=== PATIENT | male | born 1960 | race Caucasian/White ===

== ENCOUNTER → 2017-03-23 | Outpatient (CLI) | payer BC ==
[2017-03-23 12:43] LABS: ALBUMIN 3.8 GM/DL (3.2-5.2); ALBUMIN/GLOBULIN RATIO 1.31 (1.00-1.93); ALKALINE PHOSPHATASE 46 U/L (45-117); ALT/SGPT 53 U/L (12-78); ANION GAP 6 MEQ/L (8-16); AST/SGOT 25 U/L (7-37); BILIRUBIN,DIRECT < 0.1 MG/DL (0.0-0.2); BILIRUBIN,TOTAL 0.3 MG/DL (0.2-1.0); BLOOD UREA NITROGEN 16 MG/DL (7-18); CALCIUM LEVEL 9.5 MG/DL (8.5-10.1); CARBON DIOXIDE LEVEL 27 MEQ/L (21-32); CHLORIDE LEVEL 105 MEQ/L (98-107); CREATININE FOR GFR 0.93 MG/DL (0.70-1.30); GLOMERULAR FILTRATION RATE > 60.0 (>56); GLUCOSE, FASTING 129 MG/DL (70-105); PHOSPHORUS LEVEL 3.9 MG/DL (2.5-4.9); POTASSIUM SERUM 4.8 MEQ/L (3.5-5.1); SODIUM LEVEL 138 MEQ/L (136-145); TOTAL PROTEIN 6.7 GM/DL (6.4-8.2)
== END ==
LOC: M LABDRAW1 09:39
PROVIDERS: ATTEND Physician Assistant
DX: M47.896 Other spondylosis, lumbar region (principal)

== ENCOUNTER 2017-04-07 07:52 | Outpatient (RCR) | payer BC | END 2017-05-03 | LOC: M PT 07:52 | DX: Z51.89 Encounter for other specified aftercare (principal); M47.896 Other spondylosis, lumbar region; M51.36 Other intervertebral disc degeneration, lumbar region | CPT/HCPCS: 97010 ==

== ENCOUNTER → 2017-04-16 | Outpatient (REF) | payer BC | LOC: M SFHCLERA 15:20 | PROVIDERS: ATTEND Family Medicine | DX: E66.9 Obesity, unspecified (principal); Z53.9 Procedure and treatment not carried out, unspecified reason ==

== ENCOUNTER → 2017-05-18 | Outpatient (REF) | payer BC ==
[2017-05-18 21:34] LABS: HEMATOCRIT 51.1 % (42.0-52.0); HEMOGLOBIN 17.1 g/dl (14.0-18.0); MEAN CORPUSCULAR HGB CONC 33.5 g/dl (32.0-36.5); MEAN CORPUSCULAR VOLUME 86.8 fl (80.0-96.0); PLATELET COUNT, AUTOMATED 273 10^3/uL (150-450); RED BLOOD COUNT 5.89 10^6/uL (4.30-6.10); WHITE BLOOD COUNT 7.6 10^3/uL (4.0-10.0)
[2017-05-18 22:06] LABS: ESTIMATED AVERAGE GLUCOSE 140 MG/DL (60-110); HEMOGLOBIN A1c 6.5 %
[2017-05-18 22:18] LABS: ALBUMIN 4.3 GM/DL (3.2-5.2); ALBUMIN/GLOBULIN RATIO 1.43 (1.00-1.93); ALKALINE PHOSPHATASE 64 U/L (45-117); ALT/SGPT 63 U/L (12-78); ANION GAP 7 MEQ/L (8-16); AST/SGOT 38 U/L (7-37); BILIRUBIN,TOTAL 0.3 MG/DL (0.2-1.0); BLOOD UREA NITROGEN 17 MG/DL (7-18); CALCIUM LEVEL 9.2 MG/DL (8.5-10.1); CARBON DIOXIDE LEVEL 27 MEQ/L (21-32); CHLORIDE LEVEL 106 MEQ/L (98-107); CHOLESTEROL LEVEL 263 MG/DL (<200); CHOLESTEROL RISK RATIO 7.735 (<5); CREATININE FOR GFR 0.81 MG/DL (0.70-1.30); GLOMERULAR FILTRATION RATE > 60.0 (>56); GLUCOSE, FASTING 110 MG/DL (70-105); HDL CHOLESTEROL 34 MG/DL (>40); NON-HDL-C 229 MG/DL; POTASSIUM SERUM 4.6 MEQ/L (3.5-5.1); SODIUM LEVEL 140 MEQ/L (136-145); TOTAL PROTEIN 7.3 GM/DL (6.4-8.2); TRIGLYCERIDES LEVEL 476 MG/DL (<150)
== END ==
LOC: M SFHCLERA 16:51
DX: E66.9 Obesity, unspecified (principal)
CPT/HCPCS: 84443

== ENCOUNTER → 2017-09-01 | Outpatient (CLI) | payer BC ==
[2017-09-01 13:46] LABS: APPEARANCE, URINE CLEAR (CLEAR); BACTERIA, URINE AUTO NEGATIVE (NEGATIVE); BILIRUBIN, URINE AUTO NEGATIVE (NEGATIVE); BLOOD, URINE BLOOD NEGATIVE (NEGATIVE); COLOR, URINE YELLOW (YELLOW); GLUCOSE, URINE (UA) AUTO NEGATIVE (NEGATIVE); KETONE, URINE AUTO NEGATIVE (NEGATIVE); LEUKOCYTE ESTERASE, URINE AUTO NEGATIVE (NEGATIVE); MUCUS, URINE SMALL (NEGATIVE); NITRITE, URINE AUTO NEGATIVE (NEGATIVE); PROTEIN, URINE AUTO NEGATIVE (NEGATIVE); RBC, URINE AUTO 0 /HPF (0-3); SPECIFIC GRAVITY URINE AUTO 1.021 (1.002-1.035); SQUAMOUS EPITHELIAL CELL UR AU 0 /HPF (0-6); UROBILINOGEN, URINE AUTO 0.2 mg/dL (0.0-2.0); WBC, URINE AUTO 1 /HPF (0-3)
== END ==
LOC: M SMT 10:00
DX: Z12.5 Encounter for screening for malignant neoplasm of prostate (principal)
CPT/HCPCS: G0103

== ENCOUNTER 2017-09-10 12:47 | Emergency (ER) | payer BC ==
[2017-09-10] MEDS: NS 1,000 ML IV (13:32)
[2017-09-10] MEDS: MORPHINE 4 MG/ML 1ML VIAL/SYRINGE (J2270) IV ×2 (13:35→14:20)
[2017-09-10 13:46] LABS: BASO # 0.1 10^3/uL (0.0-0.2); BASO % 0.9 % (0.0-1.0); EOS # 0.1 10^3/uL (0.0-0.50); EOS % 1.9 % (0.0-3.0); HEMATOCRIT 49.1 % (42.0-52.0); HEMOGLOBIN 16.6 g/dl (13.5-17.5); IMMATURE GRANULOCYTE % 0.1 % (0-3.0); LYMPH # 1.8 10^3/uL (1.5-4.5); LYMPH % 25.7 % (24.0-44.0); MEAN CORPUSCULAR HEMOGLOBIN 28.9 pg (27.0-33.0); MEAN CORPUSCULAR HGB CONC 33.8 g/dl (32.0-36.5); MEAN CORPUSCULAR VOLUME 85.4 fl (80.0-96.0); MONO # 0.6 10^3/uL (0.0-0.8); MONO % 7.9 % (0.0-5.0); NEUTROPHILS # 4.4 10^3/uL (1.8-7.7); NEUTROPHILS % 63.5 % (36.0-66.0); PLATELET COUNT, AUTOMATED 277 10^3/uL (150-450); RED BLOOD COUNT 5.75 10^6/uL (4.30-6.10); RED CELL DISTRIBUTION WIDTH 13.2 % (11.5-14.5); WHITE BLOOD COUNT 6.9 10^3/uL (4.0-10.0)
[2017-09-10 13:50] LABS: AMORPHOUS SEDIMENT RFX SMALL (NEGATIVE); KETONE, URINE AUTO RFX NEGATIVE (NEGATIVE); LEUKOCYTE ESTERASE UR AUTO RFX NEGATIVE (NEGATIVE); MUCUS, URINE RFX SMALL (NEGATIVE); NITRITE, URINE AUTO RFX NEGATIVE (NEGATIVE); RBC, URINE AUTO RFX 1 /HPF (0-3); SPECIFIC GRAVITY UR AUTO RFX 1.024 (1.002-1.035); SQUAM EPITHELIAL CELL UR AURFX 0 /HPF (0-6); WBC, URINE AUTO RFX 1 /HPF (0-3)
[2017-09-10 14:12] LABS: ALBUMIN 3.8 GM/DL (3.2-5.2); ALBUMIN/GLOBULIN RATIO 1.06 (1.00-1.93); ALKALINE PHOSPHATASE 58 U/L (45-117); ALT/SGPT 55 U/L (12-78); ANION GAP 5 MEQ/L (8-16); AST/SGOT 36 U/L (7-37); BILIRUBIN,DIRECT < 0.1 MG/DL (0.0-0.2); BILIRUBIN,TOTAL 0.3 MG/DL (0.2-1.0); BLOOD UREA NITROGEN 14 MG/DL (7-18); CALCIUM LEVEL 8.7 MG/DL (8.5-10.1); CARBON DIOXIDE LEVEL 27 MEQ/L (21-32); CHLORIDE LEVEL 106 MEQ/L (98-107); CREATININE FOR GFR 0.94 MG/DL (0.70-1.30); GLOMERULAR FILTRATION RATE > 60.0 (>56); GLUCOSE, FASTING 124 MG/DL (70-100); LIPASE 127 U/L (73-393); POTASSIUM SERUM 4.7 MEQ/L (3.5-5.1); SODIUM LEVEL 138 MEQ/L (136-145); TOTAL PROTEIN 7.4 GM/DL (6.4-8.2)
[2017-09-10] MEDS: PERCOCET 5MG/325MG TAB PO (16:13)
== END 2017-09-10 16:29 | disposition home or self-care (01) ==
LOC: M ED 12:47
DX: M51.36 Other intervertebral disc degeneration, lumbar region (principal); R33.9 Retention of urine, unspecified; F17.200 Nicotine dependence, unspecified, uncomplicated; F12.10 Cannabis abuse, uncomplicated; K57.30 Diverticulosis of large intestine without perforation or abscess without bleeding; Z79.899 Other long term (current) drug therapy
CPT/HCPCS: J2270

== ENCOUNTER → 2017-09-29 | Outpatient (CLI) | payer BC | LOC: M SMT PRO 08:21 | DX: N40.1 Benign prostatic hyperplasia with lower urinary tract symptoms (principal); R97.20 Elevated prostate specific antigen [PSA] | CPT/HCPCS: G0416 ==

== ENCOUNTER 2017-11-02 12:50 | Emergency (ER) | payer BC ==
[2017-11-04 00:09] LABS: Lyme Disease IgG/IgM Antibodie <0.91 ISR (0.00-0.90); Lyme Disease IgM Ab Quantitati <0.80 index (0.00-0.79)
== END 2017-11-02 13:43 | disposition home or self-care (01) ==
LOC: M ED 12:50
DX: S81.851A Open bite, right lower leg, initial encounter (principal); W57.XXXA Bitten or stung by nonvenomous insect and other nonvenomous arthropods, initial encounter; Y92.89 Other specified places as the place of occurrence of the external cause; F17.200 Nicotine dependence, unspecified, uncomplicated; Z79.899 Other long term (current) drug therapy
CPT/HCPCS: 36415

== ENCOUNTER → 2019-02-01 | Outpatient (CLI) | payer OTHER ==
[~2019-02-01] MED LIST: AMOX500C PO; CYCL10TA PO; FINA5TAB2 PO; OXYB10TA2 PO; PERC5TAB12 PO; PROAAER10 INH
[2019-02-01 19:18] LABS: APPEARANCE, URINE CLEAR (CLEAR); BACTERIA, URINE AUTO NEGATIVE (NEGATIVE); BILIRUBIN, URINE AUTO NEGATIVE (NEGATIVE); BLOOD, URINE BLOOD NEGATIVE (NEGATIVE); CALCIUM OXALATE CRYSTALS SMALL; COLOR, URINE YELLOW (YELLOW); GLUCOSE, URINE (UA) AUTO NEGATIVE (NEGATIVE); KETONE, URINE AUTO NEGATIVE (NEGATIVE); LEUKOCYTE ESTERASE, URINE AUTO 1+ (NEGATIVE); MUCUS, URINE SMALL (NEGATIVE); NITRITE, URINE AUTO NEGATIVE (NEGATIVE); PROTEIN, URINE AUTO NEGATIVE (NEGATIVE); RBC, URINE AUTO 0 /HPF (0-3); SPECIFIC GRAVITY URINE AUTO 1.024 (1.002-1.035); SQUAMOUS EPITHELIAL CELL UR AU 0 /HPF (0-6); UROBILINOGEN, URINE AUTO 0.2 mg/dL (0.0-2.0); WBC, URINE AUTO 4 /HPF (0-3)
== END ==
LOC: M RAD 13:57
PROVIDERS: ATTEND Nurse Practitioner Women's Health
DX: R97.20 Elevated prostate specific antigen [PSA] (principal)

== ENCOUNTER → 2019-02-03 | Outpatient (CLI) | payer OTHER ==
--- NOTE | 2019-02-03 09:58 | REP ---
SCROTAL ULTRASOUND: Real-time sonographic evaluation of the scrotum and contents was performed. Testicles are normal in size and echotexture. Right testicle measuring 4.9 x 2.4 x 2.9 cm and left testicle 4.7 x 2.6 x 3.4 cm. Cyst in the head of the right epididymis measures 6 mm and a cyst in the head of the left epididymis measures 3 mm. No testicular mass or torsion, blood flow is seen in each testicle with duplex Doppler evaluation. RI right testicle 0.53 and left testicle 0.60. No other abnormalities are seen. IMPRESSION: Subcentimeter cyst in each epididymis. Normal testicles. Electronically Signed by Ricky Salgado MD 02/03/2019 05:52 P
== END ==
LOC: M RAD 08:00
PROVIDERS: ATTEND Nurse Practitioner Women's Health
DX: N50.3 Cyst of epididymis (principal)

== ENCOUNTER → 2019-03-07 | Outpatient (REF) | payer BC ==
[2019-03-07 13:13] LABS: BASO # 0.1 10^3/uL (0.0-0.2); EOS # 0.1 10^3/uL (0.0-0.5); EOS % 2.3 % (0.0-3.0); HEMATOCRIT 49.5 % (42.0-52.0); HEMOGLOBIN 15.9 g/dl (13.5-17.5); LYMPH # 1.5 10^3/uL (1.5-5.0); LYMPH % 24.9 % (24.0-44.0); MEAN CORPUSCULAR HEMOGLOBIN 29.1 pg (27.0-33.0); MEAN CORPUSCULAR HGB CONC 32.1 g/dl (32.0-36.5); MEAN CORPUSCULAR VOLUME 90.7 fl (80.0-96.0); MONO # 0.5 10^3/uL (0.0-0.8); MONO % 7.4 % (0.0-5.0); NEUTROPHILS # 3.9 10^3/uL (1.5-8.5); NEUTROPHILS % 64.2 % (36.0-66.0); PLATELET COUNT, AUTOMATED 217 10^3/uL (150-450); RED BLOOD COUNT 5.46 10^6/uL (4.30-6.10); WHITE BLOOD COUNT 6.1 10^3/uL (4.0-10.0)
[2019-03-07 13:48] LABS: ALBUMIN 3.5 GM/DL (3.2-5.2); ALT/SGPT 40 U/L (12-78); BILIRUBIN,TOTAL 0.5 MG/DL (0.2-1.0); BLOOD UREA NITROGEN 13 MG/DL (7-18); CARBON DIOXIDE LEVEL 28 MEQ/L (21-32); CHLORIDE LEVEL 104 MEQ/L (98-107); CHOLESTEROL LEVEL 216 MG/DL (<200); CHOLESTEROL RISK RATIO 5.837 (<5); CREATININE FOR GFR 0.78 MG/DL (0.70-1.30); GLOMERULAR FILTRATION RATE > 60.0 (>49); GLUCOSE, FASTING 137 MG/DL (70-100); HDL CHOLESTEROL 37 MG/DL (>40); LDL CHOLESTEROL 126 MG/DL (<100); NON-HDL-C 179 MG/DL; POTASSIUM SERUM 4.5 MEQ/L (3.5-5.1); SODIUM LEVEL 139 MEQ/L (136-145); TOTAL PROTEIN 6.4 GM/DL (6.4-8.2); TRIGLYCERIDES LEVEL 266 MG/DL (<150)
[2019-03-07 14:25] LABS: HEMOGLOBIN A1c 7.4 %
[2019-03-08 08:06] LABS: LDL DIRECT 148 mg/dL (0-99)
== END ==
LOC: M SFHCLERA 08:35
PROVIDERS: ATTEND Family Medicine
DX: R73.09 Other abnormal glucose (principal); E78.5 Hyperlipidemia, unspecified; Z11.59 Encounter for screening for other viral diseases

== ENCOUNTER 2019-03-25 06:02 | Emergency (ER) | payer BC ==
[~2019-03-25] VITALS: Ht 175.3 cm; Wt 118.2 kg
[2019-03-25] MEDS ORDERED: METF500T13 PO (06:09)
[2019-03-25] MEDS ORDERED: CYCL5TAB PO (06:09)
[2019-03-25] MEDS ORDERED: ATOR1TAB19 PO (06:09)
[2019-03-25] MEDS ORDERED: IBUPROFEN 600 MG TAB PO ONE (07:45)
[2019-03-25 08:16] LABS: BASO # 0.1 10^3/uL (0.0-0.2); BASO % 0.7 % (0.0-1.0); EOS # 0.2 10^3/uL (0.0-0.5); EOS % 2.4 % (0.0-3.0); HEMATOCRIT 51.9 % (42.0-52.0); HEMOGLOBIN 16.8 g/dl (13.5-17.5); LYMPH # 1.6 10^3/uL (1.5-5.0); LYMPH % 22.1 % (24.0-44.0); MEAN CORPUSCULAR HEMOGLOBIN 28.9 pg (27.0-33.0); MEAN CORPUSCULAR HGB CONC 32.4 g/dl (32.0-36.5); MEAN CORPUSCULAR VOLUME 89.3 fl (80.0-96.0); MONO # 0.5 10^3/uL (0.0-0.8); MONO % 7.5 % (0.0-5.0); NEUTROPHILS # 4.7 10^3/uL (1.5-8.5); PLATELET COUNT, AUTOMATED 241 10^3/uL (150-450); RED BLOOD COUNT 5.81 10^6/uL (4.30-6.10)
[2019-03-25 08:38] LABS: BLOOD UREA NITROGEN 18 MG/DL (7-18); C REACTIVE PROTEIN QUANTITATIV < 0.30 MG/DL (0.00-0.30); CALCIUM LEVEL 8.9 MG/DL (8.8-10.2); CARBON DIOXIDE LEVEL 28 MEQ/L (21-32); CHLORIDE LEVEL 108 MEQ/L (98-107); CREATININE FOR GFR 0.83 MG/DL (0.70-1.30); GLOMERULAR FILTRATION RATE > 60.0 (>49); GLUCOSE, FASTING 126 MG/DL (70-100); POTASSIUM SERUM 4.5 MEQ/L (3.5-5.1); SODIUM LEVEL 139 MEQ/L (136-145)
[2019-03-25 08:40] LABS: ERYTHROCYTE SEDIMENTATION RATE 2 mm/hr (0-20)
--- NOTE | 2019-03-25 08:49 | REP ---
CT lumbar spine: 03/25/2019. Indication: Low back pain. Comparison: 09/10/2017. Technique: Unenhanced axial CT images of the lumbar spine were obtained with coronal and sagittal reconstructions provided. Findings: Vertebral body alignment is within anatomical limits. There is no acute fracture, subluxation or dislocation. No lytic or blastic lesions of the visualized bones are present. There is calcification of the posterior longitudinal ligament at to T12/L1. There is significant narrowing of the spinal canal, particularly on the right at the T12/L1 level. There is significant narrowing of the left recess at L1/L2. Severe spinal canal narrowing is present at L2/L3 with calcification of the ligament of five also noted. Iliac artery atherosclerotic disease is present. Impression: No acute fracture. Severe narrowing of the spinal canal at L2/L3 and additional degenerative sequelae as described. Electronically Signed by Bony Fuentes DO 03/25/2019 08:40 A
[2019-03-25 09:35] VITALS: BP 139/83
--- NOTE | 2019-03-25 10:45 | ED PDOC ---
Post-Departure Follow-Up johanna bradford and klever faxed formal report of ct ls spine for fu Harleen Mendez MD Mar 25, 2019 10:45
== END 2019-03-25 09:35 | disposition home or self-care (01) ==
LOC: M ED 06:02
DX: M51.37 Other intervertebral disc degeneration, lumbosacral region (principal); M48.061 Spinal stenosis, lumbar region without neurogenic claudication; E11.9 Type 2 diabetes mellitus without complications; E78.5 Hyperlipidemia, unspecified; M19.90 Unspecified osteoarthritis, unspecified site; Z79.899 Other long term (current) drug therapy; Z79.84 Long term (current) use of oral hypoglycemic drugs; F17.210 Nicotine dependence, cigarettes, uncomplicated

== ENCOUNTER → 2019-03-26 | Outpatient (CLI) | payer BC ==
[~2019-03-26] MED LIST changes: +ATOR1TAB19 PO; +CYCL5TAB PO; +METF500T13 PO
--- NOTE | 2019-03-28 09:51 | REP ---
MRI LUMBAR SPINE WITHOUT CONTRAST: HISTORY: Spinal stenosis. Comparison CT study of the lumbar spine from the previous day, March 25, 2019, showed severe narrowing of the spinal canal at L2-3. TECHNIQUE: Sagittal and axial T1- and T2-weighted scans are acquired in the usual fashion with and without fat saturation. Sequences include spin echo, turbo spin-echo, and STIR imaging sequences. MRI FINDINGS: Lumbar vertebral body heights are preserved. Alignment is normal. There is no evidence of spondylolysis or spondylolisthesis. There is diffuse degenerative disc disease throughout the lumbar spine. Normal caliber aorta. No extra vertebral abnormality is observed. Images taken at T12-L1 demonstrate a calcified, broad-based right posterior disc protrusion which, combined with thickening and calcification of the posterior longitudinal ligament extending over the posterior margin of L1 all the way to the L1-2 disc, produces some thecal sac compression from T12-L1 through L1-2. At the level of the T12-L1 disc, the distal cord is indented. The tip of the conus is just below this at L1. At the L1-L2 disc, axial and sagittal images demonstrate diffuse disc bulging. There is a borderline canal size. A small central focal disc protrusion is seen at the L1-2 level extending inferiorly. Midline AP dimension of the thecal sac at L1-2 is 9 mm. There is left foraminal narrowing at L1-2. This is due to discogenic spurring and disc bulging. At L2-L3, there is severe central canal stenosis due to diffuse disc bulging, developmentally short pedicles, facet and ligamentum flavum hypertrophy, and dorsally placed epidural fat. Midline AP dimension of the thecal sac at L2-3 is 5.7 mm. The cauda equine elements are buckled and redundant above this level in the thecal sac. There is mild left-sided foraminal stenosis due to facet hypertrophy and disc bulging. At L3-L4, there is moderate central canal stenosis due to diffuse disc bulging, developmentally short pedicles, dorsally positioned epidural fat, and moderate ligamentum flavum and facet hypertrophy present bilaterally. The midline AP dimension of the thecal sac is 7 mm at this level. There is mild bilateral foraminal stenosis due to facet hypertrophy and disc bulging, left more prominent than right. At L4-5, there is moderate central canal stenosis due to diffuse disc bulging, ligamentum flavum and facet hypertrophy, dorsally placed epidural fat, and developmentally fairly short pedicles. Midline AP dimension of the thecal sac is 8 mm at L4-5. There is minimal bilateral foraminal stenosis due to facet hypertrophy and disc bulging. At L5-S1, there is bilateral facet hypertrophy. No central canal stenosis is seen. There is minimal bilateral foraminal narrowing. IMPRESSION: Multilevel central canal stenosis most pronounced at L2-3 but also significant at L3-4 and L4-5. This is due to degenerative disc disease, diffuse disc bulging, ligamentum flavum and facet hypertrophy, developmentally short pedicles, and dorsally positioned epidural fat. There is a calcified disc protrusion at T12-L1 with thickening and calcification of the posterior longitudinal ligament extending from T12-L1 to the L1-2 disc. Electronically Signed by Leonard Tomas MD 03/28/2019 09:55 A
== END ==
LOC: M RAD 13:40
PROVIDERS: ATTEND Physician Assistant Medical
DX: M48.061 Spinal stenosis, lumbar region without neurogenic claudication (principal); M51.36 Other intervertebral disc degeneration, lumbar region; M51.25 Other intervertebral disc displacement, thoracolumbar region; M51.26 Other intervertebral disc displacement, lumbar region; M24.28 Disorder of ligament, vertebrae; M46.96 Unspecified inflammatory spondylopathy, lumbar region

== ENCOUNTER → 2019-04-07 | Outpatient (REF) | payer BC ==
[2019-04-07 12:23] LABS: MALB URINE SIEMENS 15.4 MG/L; MAU/CREAT RATIO 8.2 MCG/MG (0.0-30.0)
[2019-04-07 12:35] LABS: CHOLESTEROL RISK RATIO 5.333 (<5)
== END ==
LOC: M SFHCLERA 09:18
PROVIDERS: ATTEND Family Medicine
DX: E11.9 Type 2 diabetes mellitus without complications (principal); E78.5 Hyperlipidemia, unspecified

== ENCOUNTER → 2019-10-21 | Outpatient (REF) | payer BC ==
[~2019-10-21] MED LIST changes: +CYCL-707 PO; -CYCL10TA PO; -OXYB10TA2 PO; +OXYB10TA23 PO
[2019-10-21 16:44] LABS: BLOOD UREA NITROGEN 13 MG/DL (7-18); CALCIUM LEVEL 9.1 MG/DL (8.8-10.2); CARBON DIOXIDE LEVEL 27 MEQ/L (21-32); CHLORIDE LEVEL 105 MEQ/L (98-107); CREATININE FOR GFR 0.82 MG/DL (0.70-1.30); GLOMERULAR FILTRATION RATE > 60.0 (>49); GLUCOSE, FASTING 121 MG/DL (70-100); POTASSIUM SERUM 4.6 MEQ/L (3.5-5.1); PROSTATIC SPECIFIC AG MONITOR 4.07 NG/ML (< 4.00); SODIUM LEVEL 138 MEQ/L (136-145)
[2019-10-21 18:12] LABS: HEMOGLOBIN A1c 7.7 %
== END ==
LOC: M SFHCLERA 13:06
PROVIDERS: ATTEND Family Medicine
DX: E11.9 Type 2 diabetes mellitus without complications (principal); R97.20 Elevated prostate specific antigen [PSA]

== ENCOUNTER 2020-05-06 20:59 | Emergency (ER) | payer BC ==
[~2020-05-06] VITALS: Ht 175.3 cm; Wt 120.7 kg
[2020-05-06] MEDS ORDERED: BUSP10TA PO (21:09)
[2020-05-06 22:17] LABS: BASO # 0.1 10^3/uL (0.0-0.2); BASO % 0.8 % (0.0-1.0); EOS # 0.2 10^3/uL (0.0-0.5); EOS % 1.5 % (0.0-3.0); HEMATOCRIT 49.7 % (42.0-52.0); HEMOGLOBIN 15.7 g/dl (13.5-17.5); LYMPH # 2.3 10^3/uL (1.5-5.0); LYMPH % 22.4 % (24.0-44.0); MEAN CORPUSCULAR HEMOGLOBIN 28.1 pg (27.0-33.0); MEAN CORPUSCULAR HGB CONC 31.6 g/dl (32.0-36.5); MEAN CORPUSCULAR VOLUME 89.1 fl (80.0-96.0); MONO # 0.8 10^3/uL (0.0-0.8); MONO % 7.6 % (0.0-5.0); NEUTROPHILS % 67.3 % (36.0-66.0); PLATELET COUNT, AUTOMATED 261 10^3/uL (150-450); RED BLOOD COUNT 5.58 10^6/uL (4.30-6.10); WHITE BLOOD COUNT 10.4 10^3/uL (4.0-10.0)
[2020-05-06 22:37] LABS: ALBUMIN 3.8 GM/DL (3.2-5.2); ALT/SGPT 51 U/L (12-78); BILIRUBIN,DIRECT < 0.1 MG/DL (0.0-0.2); BILIRUBIN,TOTAL 0.3 MG/DL (0.2-1.0); BLOOD UREA NITROGEN 18 MG/DL (7-18); CALCIUM LEVEL 8.8 MG/DL (8.8-10.2); CARBON DIOXIDE LEVEL 27 MEQ/L (21-32); CHLORIDE LEVEL 106 MEQ/L (98-107); CK-MB VALUE MASS 3.2 NG/ML (<3.6); CPK CREATINE PHOSPHOKINASE 224 U/L (39-308); CREATININE FOR GFR 0.96 MG/DL (0.70-1.30); GLOMERULAR FILTRATION RATE > 60.0 (>49); GLUCOSE, FASTING 136 MG/DL (70-100); MB/CK RELATIVE INDEX 1.43 (< OR =4); NT-PRO BNP 20 PG/ML (<125); POTASSIUM SERUM 4.3 MEQ/L (3.5-5.1); SODIUM LEVEL 139 MEQ/L (136-145); THYROXINE (T4) 6.2 UG/DL (4.5-12.0); TROPONIN I < 0.02 NG/ML (< 0.10)
--- NOTE | 2020-05-06 22:56 | REPVR ---
PROCEDURE INFORMATION: Exam: XR Chest, 1 View Exam date and time: 05/06/20 (9:57pm) Age: 60 years old Clinical indication: Cough and dyspnea TECHNIQUE: Imaging protocol: Portable CXR Views: 1 view COMPARISON: No relevant prior studies available FINDINGS: Lungs: Nonspecific streaky changes laterally, near the left lung base. No consolidation. Pleural space: Unremarkable. No pleural effusions. No pneumothorax. Heart/Mediastinum: Unremarkable. No cardiomegaly. Bones/joints: Unremarkable. IMPRESSION: Nonspecific streaky changes laterally near the left lung base. Possible small focal pneumonitis. Perhaps atelectasis. No consolidation. No pleural effusions. Follow-up imaging is suggested, as symptoms warrant. Electronically signed by: Rossi Patel On 05/06/2020 22:56:53 PM
[2020-05-06] MEDS ORDERED: dexameTHASONE 20MG/5ML VIAL (J1100 PER 1MG) IV ONE (23:00)
[2020-05-06] MEDS ORDERED: COMBIVENT RESPIMAT 100-20MCG INHALER 4GM INH SCH (23:00)
[2020-05-06] MEDS ORDERED: PRED20TA PO (23:03)
[2020-05-06 23:16] VITALS: BP 151/76
[2020-05-07] MEDS ORDERED: BENZ200C70 PO (00:10)
[2020-05-07] MEDS ORDERED: BENZONATATE 100 MG CAP PO ONE (00:15)
--- NOTE | 2020-05-07 10:00 | ED PDOC ---
Post-Departure Follow-Up dr bradford faxed formal report of ccxr for fu Harleen Mendez MD May 07, 2020 10:00
--- NOTE | 2020-05-08 06:01 | ECGEPIP ---
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
== END 2020-05-07 00:29 | disposition home or self-care (01) ==
LOC: M ED 20:59
DX: J44.1 Chronic obstructive pulmonary disease with (acute) exacerbation (principal); I45.19 Other right bundle-branch block; E11.9 Type 2 diabetes mellitus without complications; E78.5 Hyperlipidemia, unspecified; N40.0 Benign prostatic hyperplasia without lower urinary tract symptoms; Z79.899 Other long term (current) drug therapy; Z79.84 Long term (current) use of oral hypoglycemic drugs; F17.210 Nicotine dependence, cigarettes, uncomplicated
CPT/HCPCS: 71045; 80048; 80076; 82550; 82553; 83880; 84436; 84443; 84484; 85025; 93005; 93041; 94760; 96374; 99285; J1100

== ENCOUNTER 2020-06-25 07:25 | Emergency (ER) | payer OTHER, BC ==
[~2020-06-25] VITALS: Ht 175.3 cm; Wt 119.3 kg
[~2020-06-25 07:25] MED LIST changes: +BENZ200C70 PO; +BUSP10TA PO; +PRED20TA PO
--- OUTSIDE RECORDS SUMMARY | 2020-06-25 07:30 | CCD ---
Author Author [facility] Organization [facility] [employer] [facility] Address Unknown Phone Unavailable Care Team Providers Care Internet Developer Name Role Phone Omer Lorenz Unavailable PROBLEMS Type Condition ICD9-CM Code [id number] Code Onset Dates Condition S tatus SNOMED Code Notes Problem Gross hematuria R31.0 Active 853090378 Problem History of diabetes mellitus Z86.39 Active 161 763107 Problem Obesity (BMI 30-39.9) E66.9 Active 088243424 Problem Asbestos exposure Z77.090 Active 123892970 Problem Tobacco use disorder F17.200 Active 749758496 Problem BPH loc w urin obs/LUTS N40.1 Active 02606528 7 Problem Dyslipidemia E78.5 Active 898208997 Problem Obesity, morbid, BMI 40.0-49.9 E66.01 Active 2 99991281 Problem Chronic bronchitis, unspecified chronic bronchitis type J42 Active 04307803 Problem Elevated PSA R97.20 Active 782677861 Problem Anxiety F41.9 Active 56793035 Problem Urinary hesitancy R39.11 Active 3976393 Problem Other chronic pain G89.29 Active 83932942 Problem Type 2 diabetes mellitus wit hout complication, without long-term current use of insulin E11.9 Active 426606992 Problem Lumbago with sciatica, left side M54.42 Active 205725689 Problem Lumbago with sciatica, right side M54.41 Active [id number] ALLERGIES No Known Allergies ENCOUNTERS from 1960 to 2020-05-28 Encounter Location Date Provider Diagnosis [facility] [address] [place] [address] May, Omer Lorenz IMMUNIZATIONS Vaccine Route Administration Date Status Influenza (18 yrs & older) Flublok IM Intramuscular Mar 07, 2019 Administered Pneumococcal Adult 0.5mL (Pneumovax 23) IM Intramuscular Mar 07, 2019 Administered TDAP 0.5mL (Boostrix) IM Intramuscular Mar 07, 2019 Administe red Influenza (6mo & up) Fluzone Unknown Mar 02, 2017 Adm inistered SOCIAL HISTORY Tobacco Use: Social History Observation Description Date Details (start date - stop date) Current Smoker Sex Assigned At : Social History Observation Description Sex Assigned At Unknown Education: Question Answer Notes Level of Education: 10th grade Audit Question Answer Notes Total Score: 0 Interpretation: Alcohol Education Language: Question Answer Notes Languages spoken: New Zealander Zoroastrian: Question Answer Notes Zoroastrian 33 None Drug and Alcohol Question Answer Notes Total Score: 0 Interpretation: No problems reported Alcohol Screening: Question Answer Notes Did you have a drink containing alcohol in the past year? No Points 0 Interpretation Negative BMI Care Goal Follow-Up Question Answer Notes Above Normal BMI Follow-Up Dietary management educatio n, guidance, and counseling Tobacco Use: Question Answer Notes Are you a: current smoker Smoking Cessation Information Given 04/07/2019 Patient counseled on the dangers of tobacco use and urged to quit: 04/07/2019 How many cigarettes a day do you smoke? 11-20 Are you interested in quitting? Ready to quit Counseled the patient on tobacco use, cessation provided 09/2018 REASON FOR REFERRAL No Information VITAL SIGNS No information MEDICATIONS Medication SIG (Take, Route, Frequency, Duration) Notes Start Da te End Date Status Nicotine 21 MG/24HR 1 patch to skin Transdermal Once a day for 5 4 day(s) Mar, Active Spiriva Respimat 2.5 MCG/ACT 2 puffs Inhalation Once a day for 3 0 Days Apr, Not-Taking Nicotine 14 MG/24HR 1 patch to skin Transdermal Once a day for 1 4 day(s) Mar, Not-Taking Oxybutynin Chloride ER 10 MG 1 tablet Orally Once a day for 30 d ay(s) September, Not-Taking Nicotine 7 MG/24HR 1 patch to skin Transdermal Once a day for 14 day(s) Mar, Not-Taking Bactrim DS 800-160 MG 1 tablet Orally Twice a day for 3 days September, Not-Taking Cipro 500 MG 1 tablet Orally as directed for 1 dose(s) Oct, Not-Taking Metformin HCl 1000 mg 1 tablet with a meal Orally bid Active Atorvastatin Calcium 10 mg TAKE 1 TABLET DAILY Active Spiriva HandiHaler 18 MCG 1 capsule Inhalation Once a day for 30 day(s) May, Not-Taking Albuterol Sulfate HFA 108 (90 Base) MCG/ACT 2 puffs as needed Inhalation every 6 hrs Active Nicotine Step 1 21 MG/24HR 1 patch to skin Transdermal Once a day for 30 day(s) Oct, Active BuPROPion HCl ER (SR) 150 MG 1 tablet Orally Once a day for 90 d ays Mar, Active Tramadol HCl 50 MG 1 tablet as needed Orally three times daily f or 3 days Apr, Active BusPIRone HCl 10 mg 1 tablet Orally Twice a day Active Metformin HCl 500 MG 1 tablet with a meal Orally Once a day for 90 days Mar, Active Proscar 5 MG 1 tablet Orally Once a day for 90 days Oct Active Cyclobenzaprine HCl 5 mg 1 tablet as needed Orally before bedtime Active Incruse Ellipta 62.5 MCG/INH 1 puff Inhalation Once a day for 30 Days Apr, Not-Taking PROCEDURES No Information RESULTS No Results REASON FOR VISIT Needs ER f/u MEDICAL (GENERAL) HISTORY Type Description Date Medical History Type 2 DM, goal A1C 7% Medical History Kidney Stones Medical History Hematuria Medical History degenerative disc disease lumbar spine Medical History Dyslipidemia Medical History Obesity Medical History Nicotine use disorder Medical History BPH, LUTS Medical History Elevated PSA Surgical History bilateral knee surgery Surgical History TRUS BIOPSY (Prostate) 09/29/2017 Goals Section No Information Health Concerns No Information MEDICAL EQUIPMENT No Information MENTAL STATUS No Information FUNCTIONAL STATUS No Information ASSESSMENTS No Information PLAN OF TREATMENT Medication Medication Name Sig Start Date Stop Date Metformin HCl 1000 mg 1 tablet with a meal Orally bid Proscar 5 MG 1 tablet Orally Once a day for 90 days Oct, 018 BuPROPion HCl ER (SR) 150 MG 1 tablet Orally Once a day for 90 days Mar, Atorvastatin Calcium 10 mg TAKE 1 TABLET DAILY BusPIRone HCl 10 mg 1 tablet Orally Twice a day Cyclobenzaprine HCl 5 mg 1 tablet as needed Orally before bedtim e Albuterol Sulfate HFA 108 (90 Base) MCG/ACT 2 puffs as needed Inhalation every 6 hrs Nicotine Step 1 21 MG/24HR 1 patch to skin Transdermal Once a day for 30 day(s) Oct, Insurance Providers Payer Name Payer Address Payer Phone Insured Name Patient Relati onship to Insured Coverage Start Date Coverage End Date BCBS JOYCE MOSHER O [phone] [facility] [place] [address] LEONID RANKIN self
--- OUTSIDE RECORDS SUMMARY | 2020-06-25 07:30 | CCD ---
Author Author [facility] Organization [facility] [employer] [facility] Address Unknown Phone Unavailable Care Team Providers Care Cream Gatherer Name Role Phone Omer Lorenz Unavailable PROBLEMS Type Condition ICD9-CM Code YUW48-NL Code Onset Dates Condition S tatus SNOMED Code Notes Problem Gross hematuria R31.0 Active 552531527 Problem History of diabetes mellitus Z86.39 Active 161 404464 Problem Obesity (BMI 30-39.9) E66.9 Active 124991717 Problem Asbestos exposure Z77.090 Active 331978117 Problem Tobacco use disorder F17.200 Active 805459995 Problem BPH loc w urin obs/LUTS N40.1 Active 25241851 7 Problem Dyslipidemia E78.5 Active 257676328 Problem Obesity, morbid, BMI 40.0-49.9 E66.01 Active 2 10688905 Problem Chronic bronchitis, unspecified chronic bronchitis type J42 Active 64295770 Problem Elevated PSA R97.20 Active 572750777 Problem Anxiety F41.9 Active 34399307 Problem Urinary hesitancy R39.11 Active 4273365 Problem Other chronic pain G89.29 Active 30473025 Problem Type 2 diabetes mellitus wit hout complication, without long-term current use of insulin E11.9 Active 089105591 Problem Lumbago with sciatica, left side M54.42 Active 412822489 Problem Lumbago with sciatica, right side M54.41 Active [id number] ALLERGIES No Known Allergies ENCOUNTERS from 1960 to 2020-05-29 Encounter Location Date Provider Diagnosis [facility] [address] [place] [address] May, Omer Lorenz IMMUNIZATIONS Vaccine Route Administration [...] Education: 10th grade Audit Question Answer Notes Interpretation: Alcohol Education Total Score: 0 Language: Question Answer Notes Languages spoken: Indonesian Restoration: Question Answer Notes Restoration 33 None Drug and Alcohol Question Answer Notes Interpretation: No problems reported Total Score: 0 Alcohol Screening: Question Answer Notes Did you [...] Information RESULTS No Results REASON FOR VISIT ER f/u MEDICAL (GENERAL) HISTORY Type Description [...] BCBS JOYCE MOSHER O [phone] [facility] [id number] LEONID RANKIN self
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
[2020-06-25] MEDS ORDERED: MELO15TA28 (07:33)
[2020-06-25] MEDS ORDERED: METF10004 (07:33)
[2020-06-25] MEDS ORDERED: KETOROLAC 30 MG/ML 1ML VIAL IM ONE (08:00)
--- OUTSIDE RECORDS SUMMARY | 2020-06-25 08:47 | CCD ---
Author Author [facility] Address Unknown Phone Unavailable Support Name Relationship Address Phone ARLENE RANKIN Next Of Kin [phone] [address] NO, EMERGENCY Next Of Kin [address] [address] [place] [address] Next Of Kin [address] [place] [address] NONE, PT PER Next Of Kin - -, - - - MARY ANN FETCH Next Of Kin [address] [place] [address] - ALEXANDRA RANKIN Next Of Kin [address] [place] [address] [place] Next Of Kin [address] [place] [address] no, emergency ECON [address] [place] [address] Unavailable NO, EMERGENCY CONTACT ECON [address] [place] [address] Unavailable Re-disclosure Warning The records that you [...] is protected by Article 27-F of the [facility] Public Health law. If you continue you may have access to information: Regarding HIV / AIDS; Provided by facilities licensed or operated by the [facility] Office of Mental Health; or Provided by the [facility] Office for People With Developmental Disabilities. If such information is present, then the following [facility] mandated warning applies: This information has been [...] law may result in a fine or group home sentence or both. A general authorization for the release of medical or other information is NOT sufficient authorization for further disc losure. Family History Family Member Name Family Member Gender Family Member Status Date o f Status Description Data Source(s) Unknown Unknown Problem MEDENT ([facility]) Unknown Male Problem MEDENT ([facility]) Unknown Female Problem MEDENT ([facility] Encounters Encounter Providers Location Date Indications Data Source(s ) Unknown [address] [facility] [id number] 05/24/2020 12:00:00 AM EST eCW1 ([facility]) Unknown [address] [facility] [address] [address] 05/14/2020 12:00:00 AM EST [facility]CW1 [facility]) Unknown [address] [facility] [address] [address] 01/31/2020 12:00:00 AM EDT eCW1 ([facility]) Unknown [address] [facility] [address] [address] 11/11/2019 12:00:00 AM EDT eCW1 ([facility]) Unknown [address] [facility] [address] [address] 10/24/2019 12:00:00 AM EDT eCW1 ([facility]) Outpatient [address] [facility] [address] [address] 10/20/2019 12:00:00 AM EDT eCW1 ([facility]) Unknown [address] [facility] [address] [address] 10/15/2019 12:00:00 AM EDT eCW1 ([facility]) [facility] [address] [place] [address] 05/13/2019 12:00:00 AM EST eCW1 ([facility]) [facility] [address] [place] [address] 05/13/2019 12:00:00 AM EST eCW1 ([facility]) [facility] Ler [address] [facility] [address] 05/12/2019 12:00:00 AM EST eCW1 ([facility]) Immunizations Vaccine Date Status Description Data Source(s) INFLUENZA VIRUS VACCINE QUADRIVAL [id number](6 MOS AND UP)/PF 02/21/2020 12:00:00 AM EDT [...] BY MOUTH TWICE A DAY SOLD: 05/07/2020 [email or web address] Metformin hydrochloride 1000 MG Oral Tablet Metformin HCl 1000 MG Metformin HCl 1000 MG 11/17/2019 12:00:00 AM EDT 1.0 {tablet_with_a_meal} active Metformin HCl 1000 MG eCW1 ([facility]) Metformin hydrochloride 1000 MG Oral Tablet Metformin HCl 1000 MG Metformin HCl 1000 MG 11/17/2019 12:00:00 AM EDT 1.0 {tablet_with_a_meal} active Metformin HCl 1000 MG eCW1 ([facility]) Metformin hydrochloride 1000 MG Oral Tablet Metformin HCl 1000 MG Metformin HCl 1000 MG 11/17/2019 12:00:00 AM EDT 1.0 {tablet_with_a_meal} active Metformin HCl 1000 MG eCW1 ([facility]) Metformin hydrochloride 1000 MG Oral Tablet Metformin HCl 1000 MG Metformin HCl 1000 MG 11/17/2019 12:00:00 AM EDT 1.0 {tablet_with_a_meal} active Metformin HCl 1000 MG eCW1 ([facility]) Metformin hydrochloride 1000 MG Oral Tablet Metformin HCl 1000 MG Metformin HCl 1000 MG 11/17/2019 12:00:00 AM EDT 1.0 {tablet_with_a_meal} active Metformin HCl 1000 MG eCW1 ([facility]) Metformin hydrochloride 1000 MG Oral Tablet Metformin HCl 1000 MG Metformin HCl 1000 MG 11/17/2019 12:00:00 AM EDT 1.0 {tablet_with_a_meal} active Metformin HCl 1000 MG eCW1 ([facility]) 24 HR Nicotine 0.875 MG/HR Transdermal Patch Nicotine Step 1 21 MG/24HR Nicotine Step 1 21 MG/24HR 10/27/2019 12:00:00 AM EDT 1.0 {patch_to_skin} active Nicotine Step 1 21 MG/24HR eCW1 [facility] 24 HR Nicotine 0.875 MG/HR Transdermal Patch Nicotine Step 1 21 MG/24HR Nicotine Step 1 21 MG/24HR 10/27/2019 12:00:00 AM EDT 1.0 {patch_to_skin} active Nicotine Step 1 21 MG/24HR eCW1 ([facility]) 24 HR Nicotine 0.875 MG/HR Transdermal Patch Nicotine Step 1 21 MG/24HR Nicotine Step 1 21 MG/24HR 10/27/2019 12:00:00 AM EDT 1.0 {patch_to_skin} active Nicotine Step 1 21 MG/24HR eCW1 ([facility]) 24 HR Nicotine 0.875 MG/HR Transdermal Patch Nicotine Step 1 21 MG/24HR Nicotine Step 1 21 MG/24HR 10/27/2019 12:00:00 AM EDT 1.0 {patch_to_skin} active Nicotine Step 1 21 MG/24HR eCW1 ([facility]) 24 HR Nicotine 0.875 MG/HR Transdermal Patch Nicotine Step 1 21 MG/24HR Nicotine Step 1 21 MG/24HR 10/27/2019 12:00:00 AM EDT 1.0 {patch_to_skin} active Nicotine Step 1 21 MG/24HR eCW1 ([facility]) 90 mcg/actuation 10/24/2019 12:00:00 AM EDT HFA aerosol inha ler 8 INHALE TWO PUFFS BY MOUTH EVERY 6 HOURS NEEDED INHALE TWO PUFFS BY MOUTH EVERY 6 HOURS NEEDED SOLD: 10/24/2019 [facility] buspirone hydrochloride 10 MG Oral Tablet BusPIRone HC l 10 MG BusPIRone HCl 10 MG 10/20/2019 12:00:00 AM EDT 1.0 {tablet} activ e BusPIRone HCl 10 MG eCW1 ([facility]) buspirone hydrochloride 10 MG Oral Tablet BusPIRone HC l 10 MG BusPIRone HCl 10 MG 10/20/2019 12:00:00 AM EDT 1.0 {tablet} activ e BusPIRone HCl 10 MG eCW1 ([facility]) buspirone hydrochloride 10 MG Oral Tablet BusPIRone HC l 10 MG BusPIRone HCl 10 MG 10/20/2019 12:00:00 AM EDT 1.0 {tablet} activ e BusPIRone HCl 10 MG eCW1 ([facility]) buspirone hydrochloride 10 MG Oral Tablet BusPIRone HC l 10 MG BusPIRone HCl 10 MG 10/20/2019 12:00:00 AM EDT 1.0 {tablet} activ e BusPIRone HCl 10 MG eCW1 ([facility]) atorvastatin 10 MG Oral Tablet ATORVASTATIN CALCIUM [...] BY MOUTH EVERY 8 HOURS SOLD: 05/26/2019 [facility] 300 mg 05/19/2019 12:00:00 AM EST capsule 90 TAKE ONE CAPSULE BY MOUTH THREE TIMES A DAY TAKE ONE CAPSULE BY MOUTH THREE TIMES A DAY SOLD: 05/26/2019 [facility] Insurance Providers Payer name Policy type / Coverage type Policy ID Covered republican ID Covered republican's relationship to dueñas Policy Dueñas Plan Information [place] [id number] SP [id number] [place]/307 [id number] [id number] [place]/307 [id number] SP [id number] [place] [employer] B [id number] S [id number] [id number] [id number] [place]/307 [id number] SP [id number] ANSI-[employer]mercial [id number] [employer] Workers Compensation [id number] Self [id number] [place] 302/307 [id number] SP [id number] [place] BCBS B [id number] S [facility] [id number] BCBS [place] 304/[id number] SP [id number] BS [place] Commercial [id number] Self [id number] [employer] [id number] S [id number] [employer] Commercial Self [employer] Commercial Self [employer] [id number] S [id number] AUTO NO FAULT [id number] S [id number] Problems, Conditions, and Diagnoses Code Display Name Description Problem Type Effective Dates Data Source(s) F41.9 51459358 Anxiety Problem 10/20/2019 12:00:00 AM ED T eCW1 ([facility]) J42 [id number] Chronic bronchitis, unspecified chronic b ronchitis type Problem 10/20/2019 12:00:00 AM EDT eCW1 ([facility]) Results ID Date Data Source PSA MONITOR (HX PROSTATE CA/ABNORMAL PSA) 10/21/2019 12:00:0 0 AM EDT eCW1 ([facility]) Name Value Range Interpretation Code Description Data Kait rce(s) Supporting Document(s) PROSTATIC SPECIFIC AG MONITOR eCW1 ([facility]) ID Date Data Source Basic Metabolic Profile (BMP) 10/21/2019 12:00:00 AM EDT eCW 1 ([facility]) Name Value Range Interpretation Code Description Data Kait rce(s) Supporting Document(s) 13 7-18 BLOOD UREA NITROGEN eCW1 ([facility]) > 60.0 >49 GLOMERULAR FILTRATION RATE eCW 1 ([facility]) 121 70-100 GLUCOSE, FASTING eCW1 ([facility] hospital) 0.82 0.70-1.30 CREATININE FOR GFR eCW1 ([facility]) 27 21-32 CARBON DIOXIDE LEVEL eCW1 ([facility]) 138 136-145 SODIUM LEVEL eCW1 ([facility]) 105 98-107 CHLORIDE LEVEL eCW1 ([facility]) 4.6 3.5-5.1 POTASSIUM SERUM eCW1 ([facility]) 9.1 8.8-10.2 CALCIUM LEVEL eCW1 ([facility]) ID Date Data Source [id number] 10/21/2019 12:00:00 AM EDT eCW1 ([facility]) Name Value Range Interpretation Code Description Data Kait rce(s) Supporting Document(s) Hemoglobin A1c/Hemoglobin.total in Blood 7.7 HEMOGLOBIN A1c eCW1 ([facility]) ID Date Data Source [id number] 10/19/2019 12:00:00 AM EDT [facility] Name Value Range Interpretation Code Description Data Kait rce(s) Supporting Document(s) SARS coronavirus 2 RNA [Presence] in Res piratory specimen by BASILIO with probe detection [facility] and reported by [facility]. Procedure Social History Code Duration Value Status Description Data Source(s ) Smoking 10/20/2019 12:00:00 AM EDT Current Smoker completed Curre nt Smoker eCW1 ([facility]) Smoking 10/20/2019 12:00:00 AM EDT Current Smoker completed Curre nt Smoker eCW1 ([facility]) Smoking 10/20/2019 12:00:00 AM EDT Current Smoker completed Curre nt Smoker eCW1 ([facility]) Smoking 10/20/2019 12:00:00 AM EDT Current Smoker completed Curre nt Smoker eCW1 ([facility]) Smoking 10/20/2019 12:00:00 AM EDT Current Smoker completed Curre nt Smoker eCW1 ([facility]) Smoking 10/20/2019 12:00:00 AM EDT Current Smoker completed Curre nt Smoker eCW1 ([facility]) Vital Signs ID Date Data Source UNK Name Value Range Interpretation Code Description Data Source(s) Diastolic blood pressure 77 mm[Hg] 77 mm[Hg] eCW1 ([facility]) Systolic blood pressure 114 mm[Hg] 114 mm[Hg] e CW1 ([facility]) Body temperature 97.9 [degF] 97.9 [degF] eCW1 ( [facility]) Respiratory rate 16 /min 16 /min eCW1 ([facility]) Heart rate 80 /min 80 /min eCW1 ([facility]) Body mass index (BMI) [Ratio] 37.36 kg/m2 37.36 kg/m2 eCW1 ([facility]) Body height [in_i] eCW1 ([facility]) Body weight 253 [lb_av] 253 [lb_av] eCW1 ([facility]) Patient Treatment Plan of Care Planned Activity Planned Date Details Description Data Source (s) Metformin hydrochloride 1000 MG Oral Tablet 11/17/2019 12:00:00 AM EDT eCW1 ([facility]) Metformin hydrochloride 1000 MG Oral Tablet 11/17/2019 12:00:00 AM EDT eCW1 ([facility]) Metformin hydrochloride 1000 MG Oral Tablet 11/17/2019 12:00:00 AM EDT eCW1 ([facility]) Metformin hydrochloride 1000 MG Oral Tablet 11/17/2019 12:00:00 AM EDT eCW1 ([facility]) Metformin hydrochloride 1000 MG Oral Tablet 11/17/2019 12:00:00 AM EDT eCW1 ([facility]) Metformin hydrochloride 1000 MG Oral Tablet 11/17/2019 12:00:00 AM EDT eCW1 ([facility]) 24 HR Nicotine 0.875 MG/HR Transdermal Patch 10/27/2019 12:00:00 AM EDT eCW1 ([facility]) 24 HR Nicotine 0.875 MG/HR Transdermal Patch 10/27/2019 12:00:00 AM EDT eCW1 ([facility]) 24 HR Nicotine 0.875 MG/HR Transdermal Patch 10/27/2019 12:00:00 AM EDT eCW1 ([facility]) 24 HR Nicotine 0.875 MG/HR Transdermal Patch 10/27/2019 12:00:00 AM EDT eCW1 ([facility]) 24 HR Nicotine 0.875 MG/HR Transdermal Patch 10/27/2019 12:00:00 AM EDT eCW1 ([facility]) buspirone hydrochloride 10 MG Oral Tablet 10/20/2019 12:00:00 AM ED T eCW1 ([facility]) buspirone hydrochloride 10 MG Oral Tablet 10/20/2019 12:00:00 AM ED T eCW1 ([facility]) buspirone hydrochloride 10 MG Oral Tablet 10/20/2019 12:00:00 AM ED T eCW1 ([facility]) buspirone hydrochloride 10 MG Oral Tablet 10/20/2019 12:00:00 AM ED T eCW1 ([facility])
[2020-06-25] MEDS ORDERED: METH-1164 PO (08:48)
[2020-06-25] MEDS ORDERED: NAPR-837 PO (08:48)
[2020-06-25 09:02] VITALS: BP 136/84
--- NOTE | 2020-06-25 15:46 | ECGEPIP ---
[facility] - ED Test Date: 2020-06-25 Pat Name: LEONID RANKIN Department: Room: - Gender: Male Regulatory Leader: monica park : 1960 Requested By: CLARK ARCE PA-C. Order Number: [id number] Reading MD: Landry Lamb Measurements Intervals [place] Rate: 89 P: 42 KS: 144 QRS: 58 QRSD: 108 T: 58 QT: 370 QTc: 450 Interpretive Statements Normal sinus rhythm Incomplete right bundle branch block Nonspecific ST-T wave abnormalities Similar to tracing done 05-06-20 Electronically Signed on 06-25-2020 15:46:45 EST by Landry Lamb
== END 2020-06-25 08:56 | disposition home or self-care (01) ==
LOC: M ED 07:25
DX: S16.1XXA Strain of muscle, fascia and tendon at neck level, initial encounter (principal); X58.XXXA Exposure to other specified factors, initial encounter; Y92.89 Other specified places as the place of occurrence of the external cause; E11.9 Type 2 diabetes mellitus without complications; F41.9 Anxiety disorder, unspecified; Z79.899 Other long term (current) drug therapy
CPT/HCPCS: 93005; 96372; 99284; J1885

== ENCOUNTER → 2020-06-26 | Outpatient (CLI) | payer BC, OTHER ==
[~2020-06-26] MED LIST changes: +MELO15TA28; +METF10004; +METH-1164 PO; +NAPR-837 PO
--- NOTE | 2020-06-26 09:00 | REP ---
INDICATION: CERVICAL RADICULOPATHY. COMPARISON: Portable chest 05/06/2020 TECHNIQUE: Three views FINDINGS: There is spurring and sclerosis at the AC joint without widening of the joint space or elevation of the clavicle in relationship to the acromion. No clavicular, scapular, humeral or rib fractures. There are some minor degenerative changes at the inferior aspect of the glenohumeral joint without subluxation or dislocation. No abnormal soft tissue calcifications. The upper lung field is clear IMPRESSION: 1. Some mild AC and glenohumeral joint arthritis without fracture, subluxation, dislocation, abnormal soft tissue calcification or other acute finding. <Electronically signed by Bridger Montague > 06/26/20 0856
--- NOTE | 2020-06-26 09:04 | REP ---
INDICATION: CERVICAL RADICULOPATHY. COMPARISON: None. TECHNIQUE: Eight views FINDINGS: Lateral view shows loss of lordosis. There is spondylosis with anterior osteophytes at C3-4 and C4-5. Adequate flexion and very limited extension. There is foraminal encroachment on the right with uncinate spurring at C2-3 and C4-5. The obliquity is steep on the image for full evaluation of the foramina. The left foramina are adequate. I do not see malalignment. The dens and lateral masses align normally. There is no compression deformity. IMPRESSION: Loss of normal lordosis and decreased range of motion particularly with extension, adequate flexion. No instability, compression fracture or prevertebral swelling. Some foraminal encroachment at 2 levels on the left as described. Somewhat limited exam. The C1-2 relationships are normal on all projections. <Electronically signed by Bridger Montague > 06/26/20 0901
== END ==
LOC: M WUC 08:28
PROVIDERS: ATTEND Family Medicine
DX: M54.12 Radiculopathy, cervical region (principal)

== ENCOUNTER → 2021-07-24 | Outpatient (CLI) | payer BC ==
[2021-07-24 13:15] LABS: HEMOGLOBIN A1c 8.4 %
[2021-07-24 13:19] LABS: MALB URINE SIEMENS 15.5 MG/L; MAU/CREAT RATIO 8.9 MCG/MG (0.0-30.0)
[2021-07-24 13:21] LABS: BLOOD UREA NITROGEN 14 MG/DL (7-18); CARBON DIOXIDE LEVEL 32 MEQ/L (21-32); CHLORIDE LEVEL 101 MEQ/L (98-107); CHOLESTEROL LEVEL 173 MG/DL (<200); CHOLESTEROL RISK RATIO 5.965 (<5); CREATININE FOR GFR 1.05 MG/DL (0.70-1.30); GLOMERULAR FILTRATION RATE > 60.0 (>49); GLUCOSE, FASTING 273 MG/DL (70-100); HDL CHOLESTEROL 29 MG/DL (>40); LDL CHOLESTEROL 70 MG/DL (<100); NON-HDL-C 144 MG/DL; POTASSIUM SERUM 4.3 MEQ/L (3.5-5.1); SODIUM LEVEL 137 MEQ/L (136-145); TRIGLYCERIDES LEVEL 369 MG/DL (<150)
== END ==
LOC: M WUC 09:49
PROVIDERS: ATTEND Family Medicine
DX: E78.5 Hyperlipidemia, unspecified (principal); E11.9 Type 2 diabetes mellitus without complications; R97.20 Elevated prostate specific antigen [PSA]

== ENCOUNTER → 2023-06-10 | Outpatient (CLI) | payer BC ==
[2023-06-10 16:56] LABS: CREATININE, URINE 174.2 MG/DL; MAU/CREAT RATIO 6.3 MCG/MG (0.0-30.0)
[2023-06-10 16:57] LABS: ALBUMIN 3.9 G/DL (3.2-5.2); ALKALINE PHOSPHATASE 61 U/L (46-116); ALT/SGPT 66 U/L (7.0-40); AST/SGOT 45 U/L (<34); BILIRUBIN,TOTAL 0.7 MG/DL (0.3-1.2); BLOOD UREA NITROGEN 14 MG/DL (9-23); CALCIUM LEVEL 8.9 MG/DL (8.3-10.6); CARBON DIOXIDE LEVEL 30 MMOL/L (20-31); CHLORIDE LEVEL 102 MMOL/L (98-107); CHOLESTEROL LEVEL 185 MG/DL (<200); CHOLESTEROL RISK RATIO 5.42 (<5); CREATININE FOR GFR 0.85 MG/DL (0.70-1.30); GLOMERULAR FILTRATION RATE > 60.0 (>49); GLUCOSE, FASTING 198 MG/DL (74-106); HDL CHOLESTEROL 34.1 MG/DL (>40); LDL CHOLESTEROL 104.3 MG/DL (<100); NON-HDL-C 150.9 MG/DL; POTASSIUM SERUM 4.3 MMOL/L (3.5-5.1); SODIUM LEVEL 136 MMOL/L (136-145); TRIGLYCERIDES LEVEL 233 MG/DL (<150)
[2023-06-10 17:00] LABS: PSA SCREENING 2.14 NG/ML (< 4.00)
[2023-06-10 17:16] LABS: HEMOGLOBIN A1c 8.9 % (4.0-6.0)
== END ==
LOC: M WUC 11:42
PROVIDERS: ATTEND Family Medicine
DX: E11.9 Type 2 diabetes mellitus without complications (principal); R97.20 Elevated prostate specific antigen [PSA]; E78.5 Hyperlipidemia, unspecified
CPT/HCPCS: 36415; 80053; 80061; 82043; 83036; G0103

== ENCOUNTER → 2024-07-27 | Outpatient (CLI) | payer BC, MEDICARE ==
[~2024-07-27] MED LIST changes: -CYCL5TAB PO; +CYCL5TAB4 PO
[2024-07-27 15:01] LABS: BASO # 0.1 10^3/uL (0.0-0.2); BASO % 0.9 % (0.0-1.0); EOS # 0.1 10^3/uL (0.0-0.5); EOS % 1.8 % (0.0-3.0); HEMATOCRIT 54.3 % (42.0-52.0); HEMOGLOBIN 17.7 g/dl (13.5-17.5); LYMPH # 2.5 10^3/uL (1.5-5.0); LYMPH % 31.9 % (24.0-44.0); MEAN CORPUSCULAR HEMOGLOBIN 28.6 pg (27.0-33.0); MEAN CORPUSCULAR HGB CONC 32.6 g/dl (32.0-36.5); MEAN CORPUSCULAR VOLUME 87.7 fl (80.0-96.0); MONO # 0.5 10^3/uL (0.0-0.8); MONO % 6.7 % (2.0-8.0); NEUTROPHILS # 4.5 10^3/uL (1.5-8.5); NEUTROPHILS % 58.3 % (36.0-66.0); PLATELET COUNT, AUTOMATED 245 10^3/uL (150-450); RED BLOOD COUNT 6.19 10^6/uL (4.30-6.10); WHITE BLOOD COUNT 7.8 10^3/uL (4.0-10.0)
[2024-07-27 15:26] LABS: ALBUMIN 3.7 G/DL (3.2-5.2); ALKALINE PHOSPHATASE 62 U/L (40-129); ALT/SGPT 62 U/L (7.0-40); AST/SGOT 40 U/L (<34); BILIRUBIN,TOTAL 0.6 MG/DL (0.3-1.2); BLOOD UREA NITROGEN 11 MG/DL (9-23); CALCIUM LEVEL 8.7 MG/DL (8.3-10.6); CARBON DIOXIDE LEVEL 30 MMOL/L (20-31); CHLORIDE LEVEL 104 MMOL/L (98-107); CHOLESTEROL LEVEL 195 MG/DL (<200); CHOLESTEROL RISK RATIO 6.29 (<5); CREATININE FOR GFR 0.76 MG/DL (0.70-1.30); CREATININE, URINE 144.3 MG/DL; GLOMERULAR FILTRATION RATE > 60.0 (>49); GLUCOSE, FASTING 182 MG/DL (74-106); LDL CHOLESTEROL 119.8 MG/DL (<100); MAU/CREAT RATIO 5.5 MCG/MG (0.0-30.0); POTASSIUM SERUM 4.4 MMOL/L (3.5-5.1); SODIUM LEVEL 139 MMOL/L (136-145); TOTAL PROTEIN 6.9 G/DL (5.7-8.2); TRIGLYCERIDES LEVEL 221 MG/DL (<150)
[2024-07-27 15:41] LABS: HEMOGLOBIN A1c 10.6 % (4.0-6.0)
== END ==
LOC: M WUC 12:46
PROVIDERS: ATTEND Family Medicine
DX: Z00.00 Encounter for general adult medical examination without abnormal findings (principal); E11.9 Type 2 diabetes mellitus without complications; E78.5 Hyperlipidemia, unspecified

== ENCOUNTER → 2024-12-28 | Outpatient (REF) | payer MEDICARE ==
[2024-12-28 19:15] LABS: ALT/SGPT 36 U/L (7.0-40); AST/SGOT 33 U/L (<34); CALCIUM LEVEL 8.9 MG/DL (8.3-10.6); CARBON DIOXIDE LEVEL 25 MMOL/L (20-31); CHLORIDE LEVEL 106 MMOL/L (98-107); CREATININE FOR GFR 0.78 MG/DL (0.70-1.30); GLOMERULAR FILTRATION RATE > 90.0 (>49); POTASSIUM SERUM 4.3 MMOL/L (3.5-5.1); SODIUM LEVEL 139 MMOL/L (136-145)
[2024-12-28 19:44] LABS: ESTIMATED AVERAGE GLUCOSE 174.0 MG/DL (60-110)
== END ==
LOC: M SFHCLERA 11:24
PROVIDERS: ATTEND Family Medicine
DX: E11.9 Type 2 diabetes mellitus without complications (principal)